=== PATIENT | male | born 1965 | race Caucasian/White ===

== ENCOUNTER 2021-10-16 09:55 | Day surgery (SDC) | payer OTHER ==
[2021-10-16] MEDS ORDERED: Acetaminophen/HYDROcodone 325-5 MG Tab PO ONE (10:14)
[2021-10-16] MEDS ORDERED: Sodium Chloride 0.9% 10 ML Syringe FLUSH PRN (13:12)
[2021-10-16] MEDS ORDERED: Lactated Ringers 1,000 ML IV SCH (13:45)
[2021-10-16] MEDS ORDERED: Lidocaine 1% 4 ML ONE (14:01)
[2021-10-16] MEDS ORDERED: fentaNYL 100 MCG/2 ML SDV ONE (14:01)
[2021-10-16] MEDS ORDERED: Propofol 200 MG/20 ML SDV ONE (14:01)
[2021-10-16] MEDS ORDERED: Midazolam 1 MG/ML 2 ML SDV ONE ×2 (14:02→15:17)
[2021-10-16 14:09] LABS: ESTIMATED GFR > 60 mL/min (>60)
[2021-10-16] MEDS ORDERED: LORazepam 2 MG/ML SDV IVPUSH ONE (14:09)
[2021-10-16] MEDS ORDERED: Morphine 8 MG, EPINEPHrine 0.3 MG, Cefuroxime 750 MG, Ketorolac 30 MG, Sodium Chloride ... SCH ×5 (14:30)
[2021-10-16] MEDS ORDERED: Vancomycin 1 GM SDV ONE (14:38)
[2021-10-16] MEDS ORDERED: Morphine 8 MG, EPINEPHrine 0.3 MG, Cefuroxime 750 MG, Ketorolac 30 MG, Sodium Chloride ... PRN ×5 (14:42)
[2021-10-16] MEDS ORDERED: Lactated Ringers 1,000 ML ONE ×2 (15:10→16:32)
[2021-10-16] MEDS ORDERED: ceFAZolin 1 GM Vial ONE (15:31)
[2021-10-16] MEDS ORDERED: Phenylephrine 1% 10 MG/ML SDV ONE (16:00)
[2021-10-16] MEDS ORDERED: fentaNYL 100 MCG/2 ML SDV IVPUSH PRN (16:13)
[2021-10-16] MEDS ORDERED: Ondansetron 4 MG/2 ML SDV IVPUSH PRN (16:13)
[2021-10-16] MEDS ORDERED: HYDROmorphone 0.5 MG/0.5 ML Syringe IVPUSH PRN (16:13)
[2021-10-16] MEDS ORDERED: Ondansetron 4 MG/2 ML SDV ONE (16:14)
[2021-10-16] MEDS ORDERED: Ketorolac 30 MG/ML SDV ONE (16:14)
[2021-10-16] MEDS ORDERED: Dexamethasone 4 MG/ML 5 ML MDV ONE (16:15)
[2021-10-16] MEDS ORDERED: Cyclobenzaprine 10 MG Tab PO PRN (17:11)
[2021-10-16] MEDS: Cyclobenzaprine 10 MG Tab PO PRN (21:00)
[2021-10-16] MEDS: oxyCODONE 5 MG Tab PO PRN (21:03)
[2021-10-17] MEDS: oxyCODONE 5 MG Tab PO PRN ×2 (02:46→09:45)
[2021-10-17] MEDS: Cyclobenzaprine 10 MG Tab PO PRN (10:34)
[2021-10-17] MEDS ORDERED: Aspirin 325 MG Tab.EC PO SCH (17:00)
== END 2021-10-17 10:40 | disposition home or self-care (01) ==
LOC: JD.ED 09:55 → JD.SDS 13:45 → JD.OB 19:09 → JD.SDS 10-17 10:40
PROVIDERS: ATTEND Orthopaedic Surgery
DX: S72.001A Fracture of unspecified part of neck of right femur, initial encounter for closed fracture (principal); Z79.899 Other long term (current) drug therapy; W19.XXXA Unspecified fall, initial encounter
CPT/HCPCS: 27130; 36415; 73501; 73502; 80053; 84484; 85025; 93005; 97162; 97530; 99285; A9270; C1776; J0171; J0690; J0697; J1100; J1885; J2060; J2250; J2270; J2370; J2405; J2704; J3010; J3370; J3490; J7120; 01214; 93010; 99284